=== PATIENT | male | born 1955 | race Hispanic/Latino ===

== ENCOUNTER 2017-08-21 11:37 | Inpatient (IN) | payer MEDICAID ==
[~2017-08-21] VITALS: Ht 165.1 cm; Wt 74.0 kg
[~2017-08-21 11:37] MED LIST: ACET-2247 PO; ACET325T51 PO; ALBU2.5V2 IH; ASPI-555 PO; ATOR-2 PO; CEFTR1IV IV; ESCI10TA54 PO; FLUT16H NASAL; FURO40TA5 PO; INSREG IV; LINA145C PO; METF10004 PO; METO25TA6 PO; PREG50 PO; TRAM50TA4 PO
[2017-08-21 12:15] LABS: BASOPHILS % (AUTO) 0.5 % (0.0-5.0); EOSINOPHILS % (AUTO) 0.5 % (0.0-8.0); LYMPHOCYTES % (AUTO) 9.4 % (21.0-51.0); MEAN CORPUSCULAR HEMOGLOBIN 33.3 pg (27.0-33.0); MEAN CORPUSCULAR HGB CONC 35.6 g/dL (32.0-36.0); MEAN CORPUSCULAR VOLUME 93.5 fL (79-99); MONOCYTES % (AUTO) 7.5 % (3.0-13.0); NEUTROPHILS % (AUTO) 82.1 % (40.0-77.0); PLATELET COUNT (AUTO) 148 K/uL (130-400); RED BLOOD CELL COUNT(AUTO) 3.74 MIL/uL (4.50-6.20); RED CELL DISTRIBUTION WIDTH 13.5 % (11.0-15.5); WHITE BLOOD COUNT (AUTO) 15.1 K/uL (4.8-10.8)
[2017-08-21 12:26] LABS: CREATININE 1.2 mg/dL (0.5-1.5); POTASSIUM 4.1 mmol/L (3.5-5.1)
[2017-08-21 12:30] LABS: INR 1.07 (0.85-1.15); PARTIAL THROMBOPLASTIN TIME 25.3 SEC (26.3-35.5)
[2017-08-21 12:39] LABS: ALBUMIN 3.4 g/dL (3.5-5.0); BILIRUBIN,TOTAL 2.7 mg/dL (0.2-1.0); CREATINE KINASE MB 1.4 ng/mL (0.5-3.6); TOTAL PROTEIN, SERUM 7.3 g/dL (6.0-8.3)
[2017-08-21 13:09] LABS: APPEARANCE,URINE TURBID (CLEAR); BILIRUBIN,URINE MODERATE (NEGATIVE); GLUCOSE, URINE (UA) 100 mg/dL (NEGATIVE); KETONES,URINE 5 mg/dL (NEGATIVE); LEUKOCYTE ESTERASE ,URINE LARGE (NEGATIVE); NITRATE,URINE POSITIVE (NEGATIVE); OCCULT BLOOD,URINE LARGE (NEGATIVE); PH,URINE 5.5 (5.0-8.0); PROTEIN,URINE >=300 (NEGATIVE)
[2017-08-21 13:15] LABS: COLOR,URINE ORANGE (YELLOW)
[2017-08-21 13:19] LABS: BACTERIA,URINE Few /HPF (None Seen); MUCUS,URINE Many LPF (None Seen); RBC,URINE 26-50 /HPF (0-1); SQUAMOUS EPITHELIAL CELL,UR Moderate /HPF (0-2); WBC,URINE 26-50 /HPF (0-1)
[2017-08-21] MEDS ORDERED: CEFTRIAXONE SODIUM 1 GM ONE (14:18)
[2017-08-21] MEDS ORDERED: SODIUM CHLORIDE 0.9% 1000ML 1,000 ML IV ONE (14:18)
[2017-08-21] MEDS ORDERED: ENOXAPARIN SODIUM 40 MG/0.4 ML SYRINGE SQ ONE (15:18)
[2017-08-21] MEDS ORDERED: DEXTROSE 10%-WATER 0 ML IV ONE (16:06)
[2017-08-21] MEDS ORDERED: MORPHINE SULFATE 4 MG/1ML SYG IVP PRN (19:45)
[2017-08-21] MEDS ORDERED: ACETAMINOPHEN 325 MG TAB PO PRN (19:45)
[2017-08-21] MEDS ORDERED: ONDANSETRON HCL MDV 20ML 2 MG/ML VIAL IVP PRN (19:45)
[2017-08-21 20:00] VITALS: BP 116/65
[2017-08-21] MEDS: INSULIN R PO SS1 SQ SCH (21:00)
[2017-08-21] MEDS: PHENAZOPYRIDINE HCL 200 MG TABLET PO SCH (21:00)
[2017-08-22] VITALS: BP 108/62
[2017-08-22 04:00] VITALS: BP 120/68
[2017-08-22 06:29] LABS: HEMATOCRIT 31.5 % (42-54); MEAN CORPUSCULAR HEMOGLOBIN 32.5 pg (27.0-33.0); MEAN CORPUSCULAR HGB CONC 34.9 g/dL (32.0-36.0); MEAN CORPUSCULAR VOLUME 93.1 fL (79-99); PLATELET COUNT (AUTO) 134 K/uL (130-400); RED BLOOD CELL COUNT(AUTO) 3.38 MIL/uL (4.50-6.20); RED CELL DISTRIBUTION WIDTH 13.8 % (11.0-15.5)
[2017-08-22 06:45] LABS: BILIRUBIN,TOTAL 1.4 mg/dL (0.2-1.0); CREATININE 1.1 mg/dL (0.5-1.5); MAGNESIUM 1.5 mg/dL (1.80-2.40); POTASSIUM 3.7 mmol/L (3.5-5.1); TOTAL PROTEIN, SERUM 6.5 g/dL (6.0-8.3)
[2017-08-22] MEDS: INSULIN R PO SS1 SQ SCH ×4 (07:30→21:00)
[2017-08-22 08:19] VITALS: BP 115/64
[2017-08-22] MEDS: CEFTRIAXONE SODIUM 1 GM IVP SCH (10:13)
[2017-08-22] MEDS: PHENAZOPYRIDINE HCL 200 MG TABLET PO SCH ×2 (10:14→21:00)
[2017-08-22] MEDS: ENOXAPARIN SODIUM 40 MG/0.4 ML SYRINGE SQ SCH (10:15)
[2017-08-22 11:35] VITALS: BP 132/65
[2017-08-22 16:55] VITALS: BP 127/70
[2017-08-22 20:00] VITALS: BP 123/67
[2017-08-23] VITALS (7 sets, daily range): BP systolic 102–132; BP diastolic 61–80
[2017-08-23] MEDS: INSULIN R PO SS1 SQ SCH ×2 (05:49→21:00)
[2017-08-23] MEDS: CEFTRIAXONE SODIUM 1 GM IVP SCH (09:05)
[2017-08-23] MEDS: PHENAZOPYRIDINE HCL 200 MG TABLET PO SCH ×2 (09:05→21:00)
[2017-08-23] MEDS: ENOXAPARIN SODIUM 40 MG/0.4 ML SYRINGE SQ SCH (09:07)
[2017-08-24 04:00] VITALS: BP 112/70
[2017-08-24 06:04] LABS: HEMATOCRIT 31.6 % (42-54); MEAN CORPUSCULAR HEMOGLOBIN 32.1 pg (27.0-33.0); MEAN CORPUSCULAR HGB CONC 34.8 g/dL (32.0-36.0); MEAN CORPUSCULAR VOLUME 92.3 fL (79-99); PLATELET COUNT (AUTO) 167 K/uL (130-400); RED BLOOD CELL COUNT(AUTO) 3.43 MIL/uL (4.50-6.20); RED CELL DISTRIBUTION WIDTH 13.5 % (11.0-15.5); WHITE BLOOD COUNT (AUTO) 5.1 K/uL (4.8-10.8)
[2017-08-24 06:23] LABS: CREATININE 1.1 mg/dL (0.5-1.5); MAGNESIUM 1.8 mg/dL (1.80-2.40); POTASSIUM 3.7 mmol/L (3.5-5.1)
[2017-08-24] MEDS: INSULIN R PO SS1 SQ SCH (07:30)
[2017-08-24 08:00] VITALS: BP 121/74
[2017-08-24] MEDS: PHENAZOPYRIDINE HCL 200 MG TABLET PO SCH (09:09)
[2017-08-24] MEDS: CEFTRIAXONE SODIUM 1 GM IVP SCH (09:09)
[2017-08-24] MEDS: ENOXAPARIN SODIUM 40 MG/0.4 ML SYRINGE SQ SCH (09:11)
[2017-08-24 11:00] VITALS: BP 115/63
== END 2017-08-24 12:08 | disposition home or self-care (01) | DRG 720 ==
LOC: EDH 11:37 → EDHIP 11:38 → 3CH 18:57
PROVIDERS: ADMIT Internal Medicine Infectious Disease; ATTEND Internal Medicine Infectious Disease
DX: A41.9 Sepsis, unspecified organism (principal); E11.9 Type 2 diabetes mellitus without complications; E66.9 Obesity, unspecified; N39.0 Urinary tract infection, site not specified; I10 Essential (primary) hypertension; H54.8 Legal blindness, as defined in USA; E78.5 Hyperlipidemia, unspecified; I25.10 Atherosclerotic heart disease of native coronary artery without angina pectoris; F32.9 Major depressive disorder, single episode, unspecified; Z68.27 Body mass index [BMI] 27.0-27.9, adult; Z83.3 Family history of diabetes mellitus; Z86.73 Personal history of transient ischemic attack (TIA), and cerebral infarction without residual deficits; Z95.1 Presence of aortocoronary bypass graft
CPT/HCPCS: 36415; 71045; 80048; 80053; 81001; 82550; 82553; 82948; 83605; 83735; 83874; 84484; 85025; 85027; 85610; 85730; 87040; 87088; 87186; 93005; A4218; J0696; J1650; J3490; J7030

== ENCOUNTER → 2019-04-29 | Outpatient (CLI) | payer MEDICARE ==
[~2019-04-29] MED LIST changes: +METF-446 PO; -METF10004 PO
== END | disposition home or self-care (01) ==
LOC: SHCH 09:43
PROVIDERS: ATTEND Internal Medicine Cardiovascular Disease
DX: R06.09 Other forms of dyspnea (principal); Z95.1 Presence of aortocoronary bypass graft
CPT/HCPCS: 93306

== ENCOUNTER → 2024-01-06 | Outpatient (CLI) | payer MEDICARE ==
[~2024-01-06] MED LIST changes: -ASPI-555 PO; +ASPI-556 PO; +ESCI-8 PO; -ESCI10TA54 PO
== END | disposition home or self-care (01) ==
LOC: SHCH 13:00
PROVIDERS: ATTEND Internal Medicine Cardiovascular Disease
DX: I73.9 Peripheral vascular disease, unspecified (principal)
CPT/HCPCS: 93925